=== PATIENT | male | born 1990 | race African-American/Black ===

== ENCOUNTER 2022-04-27 04:24 | Observation (INO) | payer OTHER, MEDICARE, SELFPAY ==
[2022-04-27] VITALS (31 sets, daily range): BP systolic 112–148; BP diastolic 65–92; PULSE 74–100; RESP 13–23; TEMP 36.1–36.9; O2SAT 96–100; BMI 32.0
--- NOTE | 2022-04-27 | ECHO_ITS ---
Patient Info Name: Reese Nance Age: 32 years : 1990 Gender: Male Ht: 66 in Wt: 187 lbs BSA: 2.01 m2 HR: 78 bpm BP: 112 / 65 mmHg Heart Rhythm: Sinus Rhythm Exam Date: 04/27/2022 11:18 AM Exam Location: [facility] Patient Status: Inpatient Admit Date: 04/27/2022 Staff Ordering Physician: Smita Avery DO Back Tufter: Elizabeth Madden RD Attending Provider: Suhail Sidhu MD Referring Physician: Bennie TO; Exam Type: CA echo doppler color flow Study Info Indications R01.1 - Cardiac murmur, unspecified Complete two-dimensional, color flow and Doppler transthoracic echocardiogram is performed. Summary 1. Complete two-dimensional, color flow and Doppler transthoracic echocardiogram is performed. 2. Normal left ventricular size and thickness, hyperdynamic contractility. 3. No valvular abnormality. Left Ventricle Left ventricular chamber dimension is normal. Left ventricular systolic function is hyperdynamic, estimated at >70%. The left ventricular diastolic function is normal. Right Ventricle Right ventricular chamber dimension is normal. Left Atria Left atrial chamber dimension is normal. Right Atria Right atrial chamber dimension is normal. Aortic Valve The aortic valve is normal. Pulmonic Valve The pulmonic valve is normal. Mitral Valve The mitral valve has normal leaflets. Tricuspid Valve The tricuspid valve leaflets are normal. Pericardium/Pleural The pericardium appears normal. Aorta The aortic root size at the sinus of Valsalva is normal. Left Ventricular Outflow Tract Name Value Normal LVOT 2D LVOT Diameter 2.1 cm LVOT Doppler LVOT Peak Gradient 17 mmHg LVOT Mean Gradient 8 mmHg LVOT VTI 40 cm LVOT VTI/AV VTI Ratio 0.8 LVOT Stroke Volume 145 ml LVOT CO 11.2 l/min LVOT CI 5.6 l/min/m2 Pulmonic Valve Name Value Normal PV Doppler PV Peak Gradient 6 mmHg Mitral Valve Name Value Normal MV Doppler MV Decel Chambers 417 cm/s2 MV PHT 59 ms MV Area (PHT) 3.7 cm2 4.0-5.0 MV Diastolic Function MV E Peak Velocity 84 cm/s MV A Peak Velocity 69 cm/s MV E/A 1.2
[2022-04-27 04:46] LABS: Glucose Point of Care > 500 mg/dl (65-105)
[2022-04-27] MEDS: SODIUM CHLORIDE 0.9% IV 1,000 ML 999 ML IV CONT (05:09)
[2022-04-27 05:12] LABS: Basophils Percent Auto 0.7 % (0.2-1.2); Eosinophils Absolute Auto 0.1 K/mm3 (0-0.3); Eosinophils Percent Auto 1.6 % (0-4.4); Hematocrit 40.4 % (42.0-52.0); Hemoglobin 14.2 g/dL (14.0-18.0); Immature Granulocyte Absolute 0.03 K/mm3 (0.00-0.031); Immature Granulocyte Percent A 0.5 % (0-0.5); Lymphocytes Absolute Auto 1.24 K/mm3 (0.9-3.2); Lymphocytes Percent Auto 21.8 % (18.3-44.2); Mean Corpuscular HGB Conc 35.1 g/dl (32-36); Mean Platelet Volume 10.1 fl (7.4-10.4); Monocytes Absolute Auto 0.5 K/mm3 (0.1-0.6); Monocytes Percent Auto 8.1 % (2.6-8.5); Neutrophils Absolute Auto 3.8 K/mm3 (1.3-6.7); Neutrophils Percent Auto 67.3 % (45.5-73.1); Platelet Count Result 223 k/mm3 (150-375); White Blood Count 5.7 K/mm3 (4.5-10.0)
[2022-04-27 05:25] LABS: Alanine Aminotransferase 91 U/L (6-50); Alkaline Phosphatase 120 U/L (38-126); Anion Gap 11 mmol/L (8-16); Aspartate Amino Transferase 50 U/L (17-59); Bilirubin,Total 0.7 mg/dL (0.2-1.3); Blood Urea Nitrogen 25 mg/dL (9-20); Calcium 9.1 mg/dL (8.4-10.2); Carbon Dioxide 22 mmol/L (22-30); Chloride 91 mmol/L (98-107); Estimated CRCL calculation 87 ml/min; Estimated Glomerular Filt Rate > 60; Magnesium 1.4 mg/dL (1.6-2.3); Phosphorus 2.6 mg/dL (2.5-4.5); Sodium 124 mmol/L (137-145)
[2022-04-27 05:31] LABS: Glucose 687 mg/dL (65-110)
[2022-04-27] MEDS: LACTATED RINGERS 2,000 ML 999 ML IV CONT (06:02)
[2022-04-27 06:17] LABS: Appearance Urine Clear (Clear); Bilirubin Urine Negative (Negative); Blood Urine 1+ (Negative); Color Urine Yellow (Yellow); Glucose Urine UA 3+ mg/dL (Negative); Ketones Urine 1+ mg/dL (Negative); Leukocyte Esterase Ur Negative LEU/UL (Negative); Nitrate Urine Negative (Negative); Protein Urine Negative (Negative); Specific Grav Ur <= 1.005 (1.001-1.035); Urobilinogen Urine 0.2 mg/dL (<2.0); pH Urine 5.5 (5.0-9.0)
[2022-04-27 06:21] LABS: SARS-CoV-2 RNA PCR Negative
[2022-04-27 06:28] LABS: Mucus Urine Rare /lpf; RBC Urine 0-2 /hpf (0-2)
[2022-04-27 06:35] LABS: Add Urine Microscopic? YES
[2022-04-27] MEDS: MAGNESIUM SULF 2 GM/WATER 50ML 2 GM/50 ML BAG IVPB (07:33)
[2022-04-27 07:35] LABS: Glucose Point of Care > 500 mg/dl (65-105)
--- NOTE | 2022-04-27 07:35 | PC.NURSE ---
FSBS 511.
[2022-04-27] MEDS: INSULIN HUMAN REGULAR (*BKC) 100 UNITS/ML 9 UNITS IV PUSH (08:31)
[2022-04-27 08:33] LABS: Glucose Point of Care 481 mg/dl (65-105)
--- NOTE | 2022-04-27 08:49 | ED.GENADULT ---
HPI - General Adult General Chief complaint: Recheck/Abnormal Lab/Rx Stated complaint: hyperglycemia Time Seen by Provider: 04/27/22 04:52 Related Data Allergies Allergy/AdvReac Type Severity Reaction Status Date / Time No Known Allergies Allergy Verified 04/27/22 04:45 Review of Systems Review of Systems: CONSTITUTIONAL: Denies night sweats. EYES: No eye pain ENT: Denies rhinorrhea CARDIOVASCULAR: Denies palpitations RESPIRATORY: Denies hemoptysis GASTROINTESTINAL: Denies hematemesis GENITOURINARY: Denies hematuria. SKIN: Denies rash MUSCULOSKELETAL: Denies myalgia. [facility] Past Medical History Medical History (Updated 04/27/22 @ 09:00 by Prieto Fair MD) HTN (hypertension) Surgical History Surgical History (Updated 04/27/22 @ 09:00 by Prieto Fair MD) Kidney transplant recipient Social History Social History (Updated 04/27/22 @ 08:54 by Prieto Fair MD) Social History: Patient rarely drinks alcohol, uses marijuana rarely, and denies illicit drugs. Exam Narrative: APPEARANCE: No apparent distress. Head atraumatic. EYES: PERRLA/EOMI, NOSE: Normal no drainage NECK: Supple, Trachea midline RESPIRATORY: CTAB, No increased work of breathing. CARDIOVASCULAR: S1S2 appreciated ABDOMINAL: Soft, nontender, nondistended, MUSCULOSKELETAl: No obvious deformities NEURO: Alert. Moving 4/4 extremities SKIN:: Warm, dry. Normal color PSYCHIATRIC: Normal affect Course Vital Signs Vital signs: Vital Signs Temperature 97.9 F 04/27/22 04:37 Pulse Rate 98 04/27/22 04:37 Respiratory Rate 20 04/27/22 04:37 Blood Pressure 132/82 04/27/22 04:37 Pulse Oximetry 99 04/27/22 04:37 Oxygen Delivery Room Air 04/27/22 04:37 Temperature 97.9 F 04/27/22 04:37 Pulse Rate 81 04/27/22 07:31 Respiratory Rate 13 04/27/22 07:31 Blood Pressure 148/90 H 04/27/22 07:31 Pulse Oximetry 100 04/27/22 07:31 Oxygen Delivery Room Air 04/27/22 04:37 Medical Decision Making [facility] Narrative Medical decision making narrative: This is a 32-year-old with a history of kidney transplant presenting ED with new onset diabetes. Transplant patient presenting ED with new onset diabetes. He is not in a diabetic emergency. The case was discussed with Dr. [facility] [place] who recommended admission for glucose control and diabetes management/education. Case was then discussed with Dr. Sidhu who has accepted admission. Vital Signs Vital Signs: Vital Signs Temperature 97.9 F 04/27/22 04:37 Pulse Rate 98 04/27/22 04:37 Respiratory Rate 20 04/27/22 04:37 Blood Pressure 132/82 04/27/22 04:37 Pulse Oximetry 99 04/27/22 04:37 Oxygen Delivery Room Air 04/27/22 04:37 Temperature 97.9 F 04/27/22 04:37 Pulse Rate 81 04/27/22 07:31 Respiratory Rate 13 04/27/22 07:31 Blood Pressure 148/90 H 04/27/22 07:31 Pulse Oximetry 100 04/27/22 07:31 Oxygen Delivery Room Air 04/27/22 04:37 Lab Data Result diagrams: 04/27/22 05:04 04/27/22 05:04 Labs: Lab Results 04/27/22 04/27/22 04/27/22 Range/Units 04:43 05:03 05:04 WBC 5.7 (4.5-10.0) K/mm3 RBC 4.30 L (4.6-6.20) M/mm3 Hgb 14.2 (14.0-18.0) g/dL Hct 40.4 L (42.0-52.0) % MCV 94.0 (80-100) fl MCH 33.0 (26-34) pg MCHC 35.1 (32-36) g/dl RDW 12.0 (11.5-14.5) % Plt Count 223 (150-375) k/mm3 MPV 10.1 (7.4-10.4) fl Immature Gran % (Auto) 0.5 (0-0.5) % Neut % (Auto) 67.3 (45.5-73.1) % Lymph % (Auto) 21.8 (18.3-44.2) % K[place]haw % (Auto) 8.1 (2.6-8.5) % Eos % (Auto) 1.6 (0-4.4) % Baso % (Auto) 0.7 (0.2-1.2) % Lymph # (Auto) 1.24 (0.9-3.2) K/mm3 [place]haw # (Auto) 0.5 (0.1-0.6) K/mm3 Eos # (Auto) 0.1 (0-0.3) K/mm3 Baso # (Auto) 0.0 (0.0-0.1) K/mm3 Abs Immat Gran (auto) 0.03 (0.00-0.031) K/mm3 Absolute Neuts (auto) 3.8 (1.3-6.7) K/mm3 Absolute Nucleated
[2022-04-27 09:36] LABS: Glucose Point of Care 339 mg/dl (65-105)
--- NOTE | 2022-04-27 10:24 | ADMGEN ---
This patient, Reese Nance, was admitted to [address] [place] [address] Room 303-01 at 1015 per wheelchair. Patient/family oriented to hospital policies and general routines including ID bracelet, bed and alarms, visiting hours, pain management, procedures, bathroom and other care routines, personal items, smoking policy, room service/diet, and visiting hours. Information on how to activate the Rapid Response Team has been discussed. Patient/Family are encouraged to report perceived risks to care and to ask questions if they do not understand what they are told or what they should do.
[2022-04-27 11:37] LABS: Glucose Point of Care 461 mg/dl (65-105)
[2022-04-27] MEDS: amLODIPine BESYLATE 5 MG TABLET 10 MG PO (14:20)
[2022-04-27] MEDS: ASPIRIN 81 MG ENTERIC TABLET PO (14:20)
[2022-04-27] MEDS: CHOLECALCIFEROL 1,000 UNITS TABLET 2000 UNITS PO (14:20)
[2022-04-27] MEDS: SENNA/DOCUSATE SODIUM TABLET 1 TAB PO (14:21)
[2022-04-27] MEDS: predniSONE 5 MG TABLET PO (14:21)
[2022-04-27] MEDS: PANTOPRAZOLE 40 MG TABLET PO (14:21)
--- NOTE | 2022-04-27 14:31 | PC.NURSE ---
PT blood sugar elevated at 1128 Dr Avery notified
[2022-04-27] MEDS: INSULIN ASPART (*BKC) 100 UNITS/ML SUB-Q ×2 (16:47→16:48)
[2022-04-27 16:48] LABS: Glucose Point of Care 341 mg/dl (65-105)
--- NOTE | 2022-04-27 17:24 | PM.IMHP ---
H&P: HPI History of Present Illness Date/Time: 04/27/22 17:24 Chief Complaint: Dyspnea on exertion Narrative: 32-year-old male with past medical history significant for kidney transplantation due to unknown etiology current leave being treated with prednisone and tacrolimus is presenting with a 3 to four-week history of progressively feeling unwell. He reports polyuria, polydipsia, chest tightness and dyspnea on exertion as well as palpitations. He denies fevers or chills. No headaches or vision changes. No nausea, vomiting or diarrhea. No sick contacts or recent travel. He finally came into the ER because he just felt so abdomen. In the ER, he was found to have hyperglycemia concerning for new onset diabetes. Ketones were slightly elevated at 1.2. Glucose came back greater than 500. It is unclear whether the patient was started on insulin in the ER not. The transplant center at [place] was notified of patient's admission to the ER and recommended staying here for glucose control and follow-up outpatient with them. Family is in the room and is concerned that the diabetes is secondary to prednisone and tacrolimus and are wondering if there is a different medication they can try so the patient does not need to be on long-term diabetes medications. The patient does not have a family history of diabetes. Review of Systems Review of Systems: 12 point review of systems was assessed and was negative except as noted in the HPI [facility] Past Medical History Medical History HTN (hypertension) Surgical History Surgical History Kidney transplant recipient Family History Family History Grandparent Hypertension Diabetes mellitus Social History Social History Social History: Patient rarely drinks alcohol, uses marijuana rarely, and denies illicit drugs. Smoking status: Never smoker Alcohol intake: current Drinks per week: 1 Substance use: current Substance use type: marijuana Other substance usage details: marijuana monthly Spiritual care concerns: No Meds Home Medications and Allergies Home Medications Medication Instructions Recorded Confirmed Type amlodipine 10 mg tablet 10 mg PO DAILY 04/27/22 04/27/22 History aspirin 81 mg tablet,delayed 81 mg PO DAILY 04/27/22 04/27/22 History release carvedilol 25 mg tablet 25 mg PO BID 04/27/22 04/27/22 History cholecalciferol (vitamin D3) 50 50 mcg PO DAILY 04/27/22 04/27/22 History mcg (2,000 unit) tablet mycophenolate sodium 360 mg 360 mg PO BID 04/27/22 04/27/22 History tablet,delayed release pantoprazole 40 mg tablet,delayed 40 mg PO DAILY 04/27/22 04/27/22 History release prednisone 5 mg tablet 5 mg PO DAILY 04/27/22 04/27/22 History sennosides 8.6 mg-docusate sodium 1 tab-cap PO DAILY 04/27/22 04/27/22 History 50 mg tablet (Senna-S) tacrolimus 4 mg tablet,extended 8 mg PO DAILY 04/27/22 04/27/22 History release 24 hr (Envarsus XR) Allergies Allergy/AdvReac Type Severity Reaction Status Date / Time No Known Allergies Allergy Verified 04/27/22 04:45 Vital Signs Vital Signs - 24 hr 04/27/22 04:37 04/27/22 05:58 04/27/22 06:00 Temperature 97.9 F Pulse Rate 98 80 81 Respiratory Rate 20 17 15 Blood Pressure 132/82 Pulse Oximetry 99 99 96 Oxygen Delivery Room Air 04/27/22 06:01 04/27/22 06:15 04/27/22 06:30 Temperature Pulse Rate 84 77 84 Respiratory Rate 19 18 19 Blood Pressure 128/86 Pulse Oximetry 99 99 99 Oxygen Delivery 04/27/22 06:31 04/27/22 06:32 04/27/22 06:45 Temperature Pulse Rate 82 84 81 Respiratory Rate 19 20 16 Blood Pressure 119/71 Pulse Oximetry 98 99 100 Oxygen Delivery 04/27/22 07:00 04/27/22 07:01 04/27/22 07:15 Temperature Pulse Rate 80
[2022-04-27 17:30] LABS: Hemoglobin A1C 9.9 % (<5.7)
[2022-04-27] MEDS: carvediloL 25 MG TABLET PO (17:33)
[2022-04-27 17:47] LABS: Basophils Absolute Auto 0.1 K/mm3 (0.0-0.1); Basophils Percent Auto 0.8 % (0.2-1.2); Eosinophils Absolute Auto 0.1 K/mm3 (0-0.3); Eosinophils Percent Auto 1.2 % (0-4.4); Hematocrit 43.2 % (42.0-52.0); Hemoglobin 15.2 g/dL (14.0-18.0); Immature Granulocyte Absolute 0.04 K/mm3 (0.00-0.031); Immature Granulocyte Percent A 0.7 % (0-0.5); Lymphocytes Absolute Auto 0.91 K/mm3 (0.9-3.2); Lymphocytes Percent Auto 15.2 % (18.3-44.2); Mean Corpuscular HGB Conc 35.2 g/dl (32-36); Mean Corpuscular Hemoglobin 32.9 pg (26-34); Mean Corpuscular Volume 93.5 fl (80-100); Mean Platelet Volume 10.1 fl (7.4-10.4); Monocytes Absolute Auto 0.3 K/mm3 (0.1-0.6); Monocytes Percent Auto 5.3 % (2.6-8.5); Neutrophils Absolute Auto 4.6 K/mm3 (1.3-6.7); Neutrophils Percent Auto 76.8 % (45.5-73.1); Platelet Count Result 251 k/mm3 (150-375); Red Blood Count 4.62 M/mm3 (4.6-6.20)
[2022-04-27 18:32] LABS: Anion Gap 10 mmol/L (8-16); Blood Urea Nitrogen 17 mg/dL (9-20); Calcium 8.4 mg/dL (8.4-10.2); Carbon Dioxide 24 mmol/L (22-30); Chloride 97 mmol/L (98-107); Estimated CRCL calculation 98 ml/min; Estimated Glomerular Filt Rate > 60; Glucose 479 mg/dL (65-110); Potassium 3.9 mmol/L (3.4-5.0); Sodium 131 mmol/L (137-145)
[2022-04-27] MEDS: SODIUM CHLORIDE 0.9% IV 1,000 ML 100 ML IV CONT (18:44)
[2022-04-27] MEDS: INSULIN GLARGINE (*BKC) 100 UNITS/ML 14 UNITS SUB-Q (20:21)
[2022-04-27] MEDS: INSULIN ASPART (*BKC) 100 UNITS/ML 15 UNITS SUB-Q (20:21)
[2022-04-27 21:03] LABS: Glucose Point of Care 477 mg/dl (65-105)
[2022-04-28 00:38] LABS: Glucose Point of Care 300 mg/dl (65-105)
[2022-04-28] MEDS: SODIUM CHLORIDE 0.9% IV 1,000 ML 100 ML IV CONT (05:12)
[2022-04-28 05:42] VITALS: BP 142/84; PULSE 71; RESP 18; TEMP 36.7; O2SAT 99
--- NOTE | 2022-04-28 06:10 | PHAR ---
PHARMACY VERIFIED HOME MED: Mycophenolate Sodium 360 mg tablet,delayed release (DR/EC) TAKE 1 TABLET BY MOUTH TWICE DAILY
[2022-04-28 06:23] LABS: Basophils Percent Auto 0.7 % (0.2-1.2); Eosinophils Absolute Auto 0.1 K/mm3 (0-0.3); Eosinophils Percent Auto 2.3 % (0-4.4); Hematocrit 40.4 % (42.0-52.0); Immature Granulocyte Absolute 0.07 K/mm3 (0.00-0.031); Immature Granulocyte Percent A 1.2 % (0-0.5); Lymphocytes Absolute Auto 1.22 K/mm3 (0.9-3.2); Lymphocytes Percent Auto 21.6 % (18.3-44.2); Mean Corpuscular HGB Conc 34.7 g/dl (32-36); Mean Corpuscular Hemoglobin 32.8 pg (26-34); Mean Corpuscular Volume 94.6 fl (80-100); Mean Platelet Volume 9.9 fl (7.4-10.4); Monocytes Absolute Auto 0.5 K/mm3 (0.1-0.6); Neutrophils Absolute Auto 3.8 K/mm3 (1.3-6.7); Neutrophils Percent Auto 66.2 % (45.5-73.1); Platelet Count Result 220 k/mm3 (150-375); Red Blood Count 4.27 M/mm3 (4.6-6.20); White Blood Count 5.7 K/mm3 (4.5-10.0)
[2022-04-28 06:47] LABS: Anion Gap 7 mmol/L (8-16); Blood Urea Nitrogen 17 mg/dL (9-20); Calcium 8.8 mg/dL (8.4-10.2); Carbon Dioxide 25 mmol/L (22-30); Chloride 100 mmol/L (98-107); Estimated CRCL calculation 120 ml/min; Estimated Glomerular Filt Rate > 60; Glucose 248 mg/dL (65-110); Potassium 3.4 mmol/L (3.4-5.0); Sodium 132 mmol/L (137-145)
[2022-04-28 07:54] LABS: Glucose Point of Care 261 mg/dl (65-105)
[2022-04-28] MEDS: PANTOPRAZOLE 40 MG TABLET PO (08:25)
[2022-04-28] MEDS: CHOLECALCIFEROL 1,000 UNITS TABLET 2000 UNITS PO (08:25)
[2022-04-28] MEDS: predniSONE 5 MG TABLET PO (08:25)
[2022-04-28] MEDS: amLODIPine BESYLATE 5 MG TABLET 10 MG PO (08:25)
[2022-04-28] MEDS: SENNA/DOCUSATE SODIUM TABLET 1 TAB PO (08:25)
[2022-04-28 08:26] VITALS: PULSE 87
[2022-04-28] MEDS: carvediloL 25 MG TABLET PO (08:26)
[2022-04-28] MEDS: ASPIRIN 81 MG ENTERIC TABLET PO (08:26)
[2022-04-28] MEDS: INSULIN ASPART (*BKC) 100 UNITS/ML SUB-Q ×4 (08:27→12:10)
[2022-04-28] MEDS: SULFAMETHOXAZOLE/TRIMETHOPRIM 800/160 MG DS TABLET 1 TAB PO (11:14)
[2022-04-28 11:28] VITALS: O2SAT 96
[2022-04-28 11:55] LABS: Glucose Point of Care 216 mg/dl (65-105)
[2022-04-28 14:00] VITALS: BP 134/81; PULSE 84; RESP 20; TEMP 36.3; O2SAT 100
--- NOTE | 2022-04-29 16:45 | PCCDE ---
Consult received 04/28; pt was admitted 04/27 with new onset diabetes. Pt was discharged on Saturday 04/28 before consult could be completed. Called pt at home today. He is testing BG and taking insulin. Reviewed insulin names/types, when to take, how to synchronize Novolog with meals, how to use insulin pen. Reviewed causes, sx and tx of hypoglycemia and recommended to carry glucose tabs. Emailed h/o Carbohydrate counting for people with diabetes. Pt sts he has PCP f/up on 05/16/22; encouraged to request referral for OP DSMT. Pt is agreeable. He confirms that he has Diabetes Management book and business card for DM Specialist. Encouraged pt to call prn.
--- NOTE | 2022-04-30 07:24 | PM.DS ---
DS: Admitting Diagnosis Discharge Date 04/28/22 Admitting Diagnosis Hyperglycemia DS: Discharge Diagnosis Discharge Diagnosis (1) Diabetes: Code(s): E11.9 - Type 2 diabetes mellitus without complications Status: Acute Assessment and Plan: New onset drug-induced diabetes suspected, C-peptide level pending, A1c pending, Accu-Cheks plus sliding scale insulin ordered, Lantus started at 14 units tonight with 5 units mealtime coverage with NovoLog (2) HTN (hypertension): Code(s): I10 - Essential (primary) hypertension Status: Acute Assessment and Plan: Controlled on home medications (3) Kidney transplant recipient: Code(s): Z94.0 - Kidney transplant status Status: Acute Assessment and Plan: Continue prednisone and tacrolimus DS: Summary Hospital Course Hospital Course: 32-year-old male past medical history significant for kidney transplantation secondary to end-stage renal disease of unknown etiology, thought to be complicated by hypertension, presenting with 1 month history of feeling progressively more weak and unwell. He is currently being treated with prednisone and tacrolimus and was told that he could develop diabetes from these medications. He reports polyuria, polydipsia, chest tightness and dyspnea on exertion as well as palpitations. He was found to have significant hyperglycemia with ketones at 1.2. His transplant center at [place] was notified of the patient's condition and recommended treating the patient for diabetes and discharging with outpatient follow-up at their clinic for further care. He was started on Lantus with mealtime coverage with NovoLog and A1c was checked. A1c was 9.9. He was discharged on Lantus 18 units with NovoLog 5 units with meals. He was also given extensive education regarding testing and prescribed a glucometer with testing strips. Patient has family members with diabetes who are comfortable assisting him with his insulin and he has outpatient follow-up at [place] for further care. Time Spent with Patient Time attestation: Total time spent providing and/or coordinating discharge services: Exam Narrative: General: No acute distress, alert and oriented per baseline HEENT: Atraumatic, normocephalic, mucous membranes moist CV: Regular rate and rhythm, S1, S2 Lungs: Clear to auscultation bilaterally, no rales or crackles noted, no wheezes, good air entry Abdomen: Soft, nontender, nondistended Extremities: Normal to inspection Skin: No rashes noted, no lesions or wounds seen Psych: Euthymic, normal affect Discharge Plan Discharge Attending physician on discharge: Smita Avery Consulting providers: Nato Mckee Discharging Clinician: Smita Avery Anticipated Discharge Date/Time: 04/28/22 17:00 Patient Disposition: Home, Self-Care Activity: as tolerated Diet: diabetic Patient Instructions: Antibiotic Form, Hypoglycemia in a Person with Diabetes (DC), Type 2 Diabetes in Adults: New Diagnosis (DC), Basic Carbohydrate Counting (DC), Managing Diabetes During Sick Days (DC), Diabetic Hyperglycemia (DC), Diabetes and Your Skin (DC), Hemoglobin A1c (GEN), Hypertension and Diabetes (DC), What to Do if Your Blood Sugar is Low (DC), Diabetes and Nutrition (DC), Diabetes and Exercise (DC), Type 2 Diabetes Management for Adults (DC) Stand Alone Forms: General Discharge Information Follow-up/Referrals: PHYSICIAN NOT ON STAFF,NONSTAFF [Primary Care Provider] - Discharge Medications: New insulin glargine [Basaglar KwikPen U-100 Insulin] 100 unit/mL (3 mL) insulin pen 18 unit subcut QHS 30 Days Qty: 15 0RF insulin aspart U-100 [Novolog Flexpen U-100 Insulin] 100 unit/mL (3 mL) insulin pen 5 unit subcut TID 30 Days Qty: 4.5 0RF (DME) pen needle, diabetic [BD Ultra-Fine Orig Pen Needle] 29 gauge x 1/2 needle See Rx Instructions .Route Qty: 100 0RF Rx Instructions: As directed Con
[2022-04-30 21:24] LABS: C-Peptide 0.87 ng/mL (0.80-3.85)
== END 2022-04-28 16:22 | disposition home or self-care (01) ==
LOC: ANHED 09:00 → ANH3MEDSUR 10:08
PROVIDERS: Admitting Provider Family Medicine; Emergency Provider Emergency Medicine; Visit Provider Student in an Organized Health Care Education/Training Program
DX: E11.65 Type 2 diabetes mellitus with hyperglycemia (principal); I10 Essential (primary) hypertension; R00.2 Palpitations; Z94.0 Kidney transplant status; R07.89 Other chest pain; R06.00 Dyspnea, unspecified; Z20.822 Contact with and (suspected) exposure to COVID-19; F12.90 Cannabis use, unspecified, uncomplicated; Z79.52 Long term (current) use of systemic steroids; Z79.4 Long term (current) use of insulin; Z79.82 Long term (current) use of aspirin; Z79.899 Other long term (current) drug therapy; Z83.3 Family history of diabetes mellitus; Z82.49 Family history of ischemic heart disease and other diseases of the circulatory system
CPT/HCPCS: 36415; 80048; 80053; 81001; 82010; 82948; 83036; 83735; 84100; 84681; 85025; 93306; 96361; 96365; 96375; 99285; A9270; C9803; G0378; J1815; J3475; J7030; J7120; J7512; U0003; U0005